=== PATIENT | female | born 1950 | race Caucasian/White ===

== ENCOUNTER 2023-03-24 12:25 | Observation (INO) | payer MEDICARE, SELFPAY ==
[2023-03-24] VITALS (33 sets, daily range): BP systolic 94–158; BP diastolic 56–99; PULSE 56–152; RESP 12–21; TEMP 36.2–36.8; O2SAT 96–100; BMI 45.1
--- NOTE | ~2023-03-24 | XR_ITS ---
EXAMINATION: XR chest 2V DATE: 03/24/2023 13:27 INDICATION: Heart palpitations TECHNIQUE: PA and lateral views of the chest are obtained. COMPARISON: 12/24/2021 FINDINGS: The lungs are free of acute opacities. No pleural effusion or pneumothorax. The cardiomedia stinal silhouette is normal. There is mild thoracic spondylosis. IMPRESSION: 1. No acute cardiopulmonary abnormality. Reviewed, dictated and finalized at location B. SM TEACHER
--- NOTE | 2023-03-24 12:30 | ECG_ITS ---
Measurements Intervals [place] Rate: 151 P: HI: 0 QRS: 19 QRSD: 129 T: 59 QT: 319 QTc: 506 Interpretive Statements ATRIAL FLUTTER/TACHYCARDIA WITH RAPID VENTRICULAR RESPONSE PROBABLE SEPTAL MYOCARDIAL INFARCTION , PROBABLY OLD [35 ms Q WAVE IN V1/V2] ABNORMAL ECG NO PREVIOUS ECG AVAILABLE FOR COMPARISON Electronically Signed On 03-24-2023 17:21:18 POWERHOUSE LABORER by Ronny Rose M.D.
[2023-03-24] MEDS: dilTIAZem HCl INJ 25 MG/5 ML VIAL 10 MG IV PUSH (13:02)
[2023-03-24 13:11] LABS: Basophils Absolute Auto 0.1 K/mm3 (0.0-0.1); Basophils Percent Auto 0.8 % (0.2-1.2); Eosinophils Absolute Auto 0.3 K/mm3 (0-0.3); Eosinophils Percent Auto 3.8 % (0-4.4); Hematocrit 37.6 % (37.0-47.0); Hemoglobin 12.1 g/dL (12.0-15.0); Immature Granulocyte Absolute 0.01 K/mm3 (0.00-0.031); Immature Granulocyte Percent A 0.1 % (0-0.5); Lymphocytes Absolute Auto 2.89 K/mm3 (0.9-3.2); Lymphocytes Percent Auto 36.9 % (18.3-44.2); Mean Corpuscular HGB Conc 32.2 g/dl (32-36); Mean Corpuscular Hemoglobin 30.7 pg (26-34); Mean Corpuscular Volume 95.4 fl (80-100); Mean Platelet Volume 11.1 fl (7.4-10.4); Monocytes Absolute Auto 0.7 K/mm3 (0.1-0.6); Monocytes Percent Auto 9.3 % (2.6-8.5); Neutrophils Absolute Auto 3.9 K/mm3 (1.3-6.7); Neutrophils Percent Auto 49.1 % (45.5-73.1); Platelet Count Result 251 k/mm3 (150-375); Red Blood Count 3.94 M/mm3 (4.2-5.4); Red Cell Distribution Width 13.2 % (11.5-14.5); White Blood Count 7.8 K/mm3 (4.5-10.0)
[2023-03-24 13:24] LABS: Prothrombin Time 13.8 Seconds (11.1-14.7)
[2023-03-24 13:25] LABS: Partial Thromboplastin Time 28.7 SECONDS (22.3-36.8)
[2023-03-24 13:33] LABS: Alanine Aminotransferase 19 U/L (6-35); Albumin Level 3.9 g/dL (3.5-5.1); Alkaline Phosphatase 82 U/L (38-126); Anion Gap 9 mmol/L (8-16); Aspartate Amino Transferase 30 U/L (14-36); Bilirubin,Total 0.8 mg/dL (0.2-1.3); Blood Urea Nitrogen 24 mg/dL (7-17); Calcium 9.4 mg/dL (8.4-10.2); Carbon Dioxide 22 mmol/L (22-30); Chloride 105 mmol/L (98-107); Estimated CRCL calculation 45 ml/min; Estimated Glomerular Filt Rate 40; Glucose 269 mg/dL (65-110); Magnesium 1.8 mg/dL (1.6-2.3); Potassium 5.1 mmol/L (3.4-5.0); Sodium 136 mmol/L (137-145)
[2023-03-24 13:40] LABS: NT Pro B Type Natriuretic Pept 2770 pg/mL (19.9-100)
[2023-03-24] MEDS: dilTIAZem HCl INJ 25 MG/5 ML VIAL 15 MG IV PUSH (13:55)
--- NOTE | 2023-03-24 14:18 | ECG_ITS ---
Measurements Intervals [place] Rate: 85 P: UT: 0 QRS: 10 QRSD: 89 T: 15 QT: 352 QTc: 419 Interpretive Statements ATRIAL FIBRILLATION BASELINE ARTIFACT NONSPECIFIC T-WAVE ABNORMALITY ABNORMAL RHYTHM ECG COMPARED TO ECG 03/24/2023 12:36:21 ATRIAL FIBRILLATION HAS REPLACED ATRIAL FLUTTER T-WAVE ABNORMALITY NOW PRESENT Electronically Signed On 03-24-2023 17:24:43 CLINICAL TRIAL HEAD by Ronny Rose M.D.
--- NOTE | 2023-03-24 14:36 | ED.ARRPALP ---
HPI - Arrhythmia/Palpitations General Chief Complaint: Arrhythmia/Palpitations Stated Complaint: INC HR Time Seen by Provider: 03/24/23 12:42 History of Present Illness HPI narrative: patient is a 72-year-old female who presents ER with elbow heart rate. She had a clinic appointment that showed a heart rate in the 150s. Has a similar heart rate on arrival here. No chest pain or shortness of breath. She cannot feel the palpitations. No lightheadedness or dizziness. Denies fevers or chills or sweats. No history of arrhythmia. Related Data Home Medications Medication Instructions Recorded Confirmed atorvastatin 40 mg tablet 40 mg PO DAILY 03/24/23 03/24/23 glipizide 10 mg tablet 20 mg PO HS 03/24/23 03/24/23 hydrochlorothiazide 25 mg tablet 25 mg PO DAILY PRN Edema 03/24/23 03/24/23 lisinopril 10 mg tablet 10 mg PO DAILY 03/24/23 03/24/23 loratadine 10 mg tablet 10 mg PO DAILY PRN Allergy Symptoms 03/24/23 03/24/23 metformin 850 mg tablet 1,700 mg PO HS 03/24/23 03/24/23 Allergies Allergy/AdvReac Type Severity Reaction Status Date / Time No Known Allergies Allergy Verified 03/24/23 13:01 Review of Systems Review of Systems: All systems reviewed & are unremarkable except as noted in HPI and below Constitutional: Constitutional: Denies chills, Denies fatigue and Denies fever(s) ENT: Reports system reviewed and no additional complaints, except as documented Cardiovascular: Cardiovascular: Denies chest pain, Reports rapid heart rate and Denies radiating jaw, neck or arm pain Respiratory: Respiratory: Reports no additional respiratory complaints Gastrointestinal: Gastrointestinal: Reports no additional gastrointestinal complaints Genitourinary: Genitourinary: Reports no additional female genitourinary complaints Musculoskeletal: Musculoskeletal: Reports no additional musculoskeletal complaints [facility] Past Medical History Medical History (Updated 03/24/23 @ 19:47 by Diony Rene MD) DM2 (diabetes mellitus, type 2) HTN (hypertension) Social History Social History Smoking status: Never smoker Alcohol intake: current Drinks per week: 1 Substance use: current Substance use type: marijuana Last use: 03/23/23 Do You Feel Safe in your Home?: Yes Lack of Transportation: No Lack of Food: Never True Current Housing: I Have Housing Concerned About Future Housing: No Difficulty Paying Gas/Electric Bills: No Difficulty Paying for Meds: No Currently Unemployed: No Education: Bachelor's Degree Difficulty w/ Childcare or Family Care: No Spiritual care concerns: No Exam Narrative: GENERAL: Well-appearing, well-nourished, and in no acute distress. HEAD: Normocephalic, atraumatic. ENT: Mucous membranes moist. NECK: Supple. CHEST: Clear to auscultation. No respiratory distress. HEART: Tachycardic regular. Normal peripheral pulses. ABDOMEN: Soft, nontender, nondistended. EXTREMITIES: Normal range of motion. No edema. SKIN: Warm, dry, no rash. NEURO: Alert and oriented x3. PSYCH: Normal mood and affect. Course Course Emergency Course: patient received 25 mg of diltiazem IV with a flutter with RVR to atrial fibrillation. 1444: discussed with cardiology and hospitalist. Admit, lovenox. PO metoprolol. Vital Signs Vital signs: Vital Signs Temperature 97.5 F L 03/24/23 12:31 Pulse Rate 147 H 03/24/23 12:31 Respiratory Rate 20 03/24/23 12:31 Blood Pressure 139/96 H 03/24/23 12:31 Pulse Oximetry 100 03/24/23 12:31 Temperature 97.9 F 03/24/23 19:21 Pulse Rate 56 L 03/24/23 19:21 Respiratory Rate 18 03/24/23 19:21 Blood Pressure 109/56 L 03/24/23 19:21 Pulse Oximetry 97 03/24/23 19:21 Oxygen Delivery Room Air 03/24/23 16:21 MDM - Arrhythmia/Palpitations Lab Data 03/24/23 13:04 03/24/23 13:04 Labs: Lab Results 03/24/23 Range/Units 13:04 WBC 7.8 (4.5-10.0) K/mm3 RBC 3.94
[2023-03-24] MEDS: METOPROLOL TARTRATE 25 MG TABLET PO ×2 (15:43→20:42)
--- NOTE | 2023-03-24 15:53 | PM.IMHP ---
H&P: HPI History of Present Illness Date/Time: 03/24/23 15:53 Chief Complaint: Tachycardia Narrative: 72 y/o F presents here with new tachycardia with PMH of HTN and DM. Patient presented here with new tachycardia that was discovered at her Nephrology appt with Quoc HARTMAN today. Patient is unsure why she sees a circuits engineer for monitoring , Retort Load Expediter elevated and GFR 40 - likely CKD. At this appt they noted her HR ranged from 130-150's. Initial EKG showed atrial flutter RVR, repeat post dilt IVP showed rate controlled AFib without RVR. Patient does not endorse any chest pain, SOB, new fatigue, palpitations, or weakness. Some limitations in mobility r/t chronic low back pain due to arthritis. Denies any previous cardiac history and does not follow with a studio operations manager. No recent illnesses. Midl ankle edema - present over a year, no pitting, and not on amlodipine. No other complaints or concerns. Review of Systems Review of Systems: All systems reviewed & are unremarkable except as noted in HPI and below PMFSH Past Medical History Medical History (Updated 03/24/23 @ 16:52 by Chasity Kuo, ROLLER MACHINE OPERATOR) DM2 (diabetes mellitus, type 2) HTN (hypertension) Social History Social History Smoking status: Never smoker Alcohol intake: current Drinks per week: 1 Substance use: current Substance use type: marijuana Last use: 03/23/23 Do You Feel Safe in your Home?: Yes Lack of Transportation: No Lack of Food: Never True Current Housing: I Have Housing Concerned About Future Housing: No Difficulty Paying Gas/Electric Bills: No Difficulty Paying for Meds: No Currently Unemployed: No Education: Bachelor's Degree Difficulty w/ Childcare or Family Care: No Spiritual care concerns: No Meds Home Medications and Allergies Home Medications Medication Instructions Recorded Confirmed Type atorvastatin 40 mg tablet 40 mg PO DAILY 03/24/23 03/24/23 History glipizide 10 mg tablet 20 mg PO HS 03/24/23 03/24/23 History hydrochlorothiazide 25 mg tablet 25 mg PO DAILY PRN Edema 03/24/23 03/24/23 History lisinopril 10 mg tablet 10 mg PO DAILY 03/24/23 03/24/23 History loratadine 10 mg tablet 10 mg PO DAILY PRN Allergy Symptoms 03/24/23 03/24/23 History metformin 850 mg tablet 1,700 mg PO HS 03/24/23 03/24/23 History Allergies Allergy/AdvReac Type Severity Reaction Status Date / Time No Known Allergies Allergy Verified 03/24/23 13:01 Vital Signs Vital Signs - 24 hr 03/24/23 12:31 03/24/23 12:45 03/24/23 12:46 Temperature 97.5 F L Pulse Rate 147 H 148 H 149 H Respiratory Rate 20 14 17 Blood Pressure 139/96 H 139/96 H Pulse Oximetry 100 99 99 03/24/23 13:00 03/24/23 13:01 03/24/23 13:15 Temperature Pulse Rate 150 H 149 H 149 H Respiratory Rate 16 17 12 Blood Pressure 128/83 Pulse Oximetry 100 03/24/23 13:16 03/24/23 13:30 03/24/23 13:33 Temperature Pulse Rate 149 H 152 H 151 H Respiratory Rate 20 15 17 Blood Pressure 131/81 145/86 H Pulse Oximetry 100 100 03/24/23 13:45 03/24/23 13:47 03/24/23 13:48 Temperature Pulse Rate 152 H 148 H 149 H Respiratory Rate 17 19 13 Blood Pressure 145/99 H Pulse Oximetry 100 03/24/23 14:00 03/24/23 14:02 03/24/23 14:15 Temperature Pulse Rate 85 95 99 Respiratory Rate 14 17 14 Blood Pressure 122/65 Pulse Oximetry 96 99 03/24/23 15:43 03/24/23 14:17 03/24/23 14:30 Temperature Pulse Rate 136 H 122 H 119 H Respiratory Rate 19 15 Blood Pressure 102/67 Pulse Oximetry 98 98 03/24/23 14:31 03/24/23 14:47 03/24/23 15:00 Temperature Pulse Rate 101 H 130 H 140 H Respiratory Rate 14 18 15 Blood Pressure 140/66 120/64 Pulse Oximetry 98 99 03/24/23 15:32 03/24/23 15:46 Temperature Pulse Rate 130 H 136 H Respiratory Rate 21 H 19 Blood Pressure 133/74 158/91 H Pulse Oximetry Exam Const: General: comfortable and no acute distress HENMT: Face/Nose/Sinus: Normal nares pre
[2023-03-24] MEDS: METOPROLOL TARTRATE INJ 5 MG/5 ML VIAL IV PUSH (16:22)
--- NOTE | 2023-03-24 16:40 | ADMGEN ---
This patient, Shahnaz Rene, was admitted to IMU Room 209-01. Patient/family oriented to hospital policies and general routines including ID bracelet, bed and alarms, visiting hours, pain management, procedures, bathroom and other care routines, personal items, smoking policy, room service/diet, and visiting hours. Information on how to activate the Rapid Response Team has been discussed. Patient/Family are encouraged to report perceived risks to care and to ask questions if they do not understand what they are told or what they should do.
[2023-03-24 22:52] LABS: Glucose Point of Care 301 mg/dl (65-105)
[2023-03-24] MEDS: INSULIN ASPART (*BKC) 100 UNITS/ML SUB-Q (23:02)
[2023-03-25] VITALS (12 sets, daily range): BP systolic 122–137; BP diastolic 60–70; PULSE 60–80; RESP 16; TEMP 36.4–37.1; O2SAT 99–100
--- NOTE | 2023-03-25 | ECHO_ITS ---
Patient Info Name: Shahnaz Rene Age: 72 years : 1950 Gender: Female Ht: 65 in Wt: 276 lbs BSA: 2.47 m2 HR: 60 bpm BP: 135 / 69 mmHg Heart Rhythm: Sinus Rhythm Technical Quality: Fair Exam Date: 03/25/2023 1:28 PM Exam Location: Echo Lab Patient Status: Outpatient Admit Date: 03/24/2023 Staff Ordering Physician: Chasity Kuo APRN Environmental Services Project Manager: Jessy Humphrey RDCS Attending Provider: Kelly Wharton DO Referring Physician: Ayaan SERRATO; Exam Type: CA echo dop color flow w con Study Info Indications - new afib Complete two-dimensional, color flow and Doppler transthoracic echocardiogram is performed with contrast to opacify the left ventricle and to improve the deliniation of the left ventricle endocardial borders. Contrast/Agitated Saline Contrast/Ag. Saline: Definity Amount: 2.00 ml Administered By: Jessy Humphrey RDCS Existing IV Access: Yes IV Access Condition: patent with no signs of infiltration Summary 1. Left ventricular chamber dimension is normal. 2. Left ventricular systolic function is normal, estimated at 60-65%. 3. The left ventricular diastolic function is grade III diastolic dysfunction. 4. Right ventricular systolic function is normal. 5. Right atrial chamber dimension is mildly enlarged. 6. There is mild tricuspid valve regurgitation. 7. There is trivial pericardial effusion. Left Ventricle Left ventricular chamber dimension is normal. Left ventricular systolic function is normal, estimated at 60-65%. The left ventricular diastolic function is grade III diastolic dysfunction. Right Ventricle Right ventricular chamber dimension is normal. Right ventricular systolic function is normal. Left Atria Left atrial chamber dimension is normal. Right Atria Right atrial chamber dimension is mildly enlarged. Atrial Septum Intact interatrial septum visualized by color flow imaging. Aortic Valve The aortic valve is trileaflet. There is no aortic valve stenosis. There is no aortic valve regurgitation. There is mild aortic valve calcification. Pulmonic Valve The pulmonic valve is not well visualized. Mitral Valve There is trace mitral valve regurgitation. Tricuspid Valve There is mild tricuspid valve regurgitation. Pericardium/Pleural There is trivial pericardial effusion. Inferior Vena Cava Normal inferior vena cava with >50% collapse upon inspiration consistent with normal right atrial pressure, 3 mmHg. Aorta The aortic root size at the sinus of Valsalva is normal. Left Ventricular Outflow Tract Name Value Normal LVOT 2D LVOT Diameter 1.96 cm LVOT Doppler LVOT Peak Gradient 3 mmHg LVOT Mean Gradient 1 mmHg LVOT VTI 19.85 cm LVOT VTI/AV VTI Ratio 0.49 LVOT Stroke Volume 59.99 ml LVOT CO 3.56 l/min LVOT CI 1.44 L/min/m2 Pulmonic Valve Name Value Normal
[2023-03-25 04:58] LABS: Basophils Absolute Auto 0.1 K/mm3 (0.0-0.1); Basophils Percent Auto 0.6 % (0.2-1.2); Eosinophils Absolute Auto 0.4 K/mm3 (0-0.3); Hematocrit 33.6 % (37.0-47.0); Hemoglobin 10.6 g/dL (12.0-15.0); Immature Granulocyte Absolute 0.02 K/mm3 (0.00-0.031); Immature Granulocyte Percent A 0.3 % (0-0.5); Lymphocytes Percent Auto 40.9 % (18.3-44.2); Mean Corpuscular HGB Conc 31.5 g/dl (32-36); Mean Corpuscular Hemoglobin 30.2 pg (26-34); Mean Corpuscular Volume 95.7 fl (80-100); Mean Platelet Volume 10.3 fl (7.4-10.4); Monocytes Absolute Auto 0.7 K/mm3 (0.1-0.6); Monocytes Percent Auto 8.7 % (2.6-8.5); Neutrophils Absolute Auto 3.5 K/mm3 (1.3-6.7); Neutrophils Percent Auto 44.5 % (45.5-73.1); Platelet Count Result 230 k/mm3 (150-375); Red Blood Count 3.51 M/mm3 (4.2-5.4); Red Cell Distribution Width 13.3 % (11.5-14.5); White Blood Count 7.8 K/mm3 (4.5-10.0)
[2023-03-25 05:08] LABS: Alanine Aminotransferase 19 U/L (6-35); Albumin Level 3.8 g/dL (3.5-5.1); Alkaline Phosphatase 76 U/L (38-126); Anion Gap 7 mmol/L (8-16); Aspartate Amino Transferase 31 U/L (14-36); Bilirubin,Total 0.8 mg/dL (0.2-1.3); Blood Urea Nitrogen 26 mg/dL (7-17); Calcium 8.9 mg/dL (8.4-10.2); Carbon Dioxide 25 mmol/L (22-30); Chloride 105 mmol/L (98-107); Estimated CRCL calculation 43 ml/min; Estimated Glomerular Filt Rate 37; Glucose 190 mg/dL (65-110); Hemoglobin A1C 7.9 % (<5.7); Potassium 4.6 mmol/L (3.4-5.0); Sodium 137 mmol/L (137-145)
[2023-03-25 07:04] LABS: Free T4 Free Thyroxine Reflex 1.22 ng/dL (0.78-2.19)
[2023-03-25 08:20] LABS: Glucose Point of Care 195 mg/dl (65-105)
--- NOTE | 2023-03-25 08:39 | PM.IMPN ---
Progress Note: A&P Assessment and Plan (1) DM2 (diabetes mellitus, type 2): Code(s): E11.9 - Type 2 diabetes mellitus without complications Status: Acute (2) Atrial fibrillation and flutter: Code(s): I48.91 - Unspecified atrial fibrillation; I48.92 - Unspecified atrial flutter Status: Acute (3) JULISSA (obstructive sleep apnea): Code(s): G47.33 - Obstructive sleep apnea (adult) (pediatric) Status: Acute Plan 72 y/o F presents here with new tachycardia with PMH of HTN and DM. Patient presented here with new tachycardia that was discovered at her Nephrology appt with Quoc HARTMAN today. Patient is unsure why she sees a host/hostess restaurant for monitoring , Ocular Care Aide elevated and GFR 40 - likely CKD. At this appt they noted her HR ranged from 130-150's. Initial EKG showed atrial flutter RVR, repeat post dilt IVP showed rate controlled AFib without RVR. (1) Atrial fibrillation and flutter: ?Code(s): I48.91 - Unspecified atrial fibrillation; I48.92 - Unspecified atrial flutter ?Status:?Acute ?Assessment and Plan: Initially A-Flutter RVR with rate at 151. given 25 of dilt IVP with conversion to A-Fib, rate controlled, without RVR. ordered 5 mg of metoprolol IVP. BNP elevated - 2770. Follow-up tSH: 5.2, free T4 1.22, free T4 1.41, follow-up with primary care doctor for evaluation echo pending cardiology consulted management per precast concrete ironworker Kelsey ordered, patient refused despite education. CHADSVasc - 4. patient requesting oral anticoagulation, monitor labs and tele. Now sinus rhythm, continue metoprolol 25 mg b.i.d. p.o., Eliquis 5 mg b.i.d. p.o. per precast concrete ironworker. Appreciate precast concrete ironworker recommendation (2) DM2 (diabetes mellitus, type 2): ?Code(s): E11.9 - Type 2 diabetes mellitus without complications ?Status:?Acute ?Assessment and Plan: Hypoglycemia protocol POC blood glucose ACHS home medication held - metformin and glipizide correct regimen ordered - low dose TIDWM and HS A1C ordered CKD stage 3 BUN creatinine close to baseline Avoid nephrotoxic medication Follow-up BMP OAS possibl JULISSA, Patient has a snore in the night, patient is morbidly obese Patient needs a sleeping study of patient, discussed with patient about the necessity of sleeping study, referral per primary care doctor Subjective Date/time seen: 03/25/23 08:39 Interval history: Patient feels better, denies chest pain, breaths, palpitation. Labs reviewed, patient is hemodynamically stable rate is controlled Exam Narrative: GENERAL: Pleasant, in no acute distress. Well-nourished. - EYES: EOMI. Anicteric. - HENT: Moist mucous membranes. - LUNGS: Clear to auscultation bilaterally, no wheezing, rhonchi, or rales. - CARDIOVASCULAR: Regular rhythm, tachycardic no murmur. No JVD. - ABDOMEN: Soft, non-tender and non-distended. No palpable masses. - EXTREMITIES: No edema. Peripheral pulses 2+. Non-tender. - NEUROLOGIC: No focal neurological deficits. CN II-XII grossly intact. - PSYCHIATRIC: Awake, Alert and oriented x 3. Appropriate mood and affect. - SKIN: No rashes or lesions. Warm. - LYMPH: No cervical lymphadenopathy. Objective Data Vital Signs Vital Signs: Vital Signs - 24 hr 03/24/23 12:31 03/24/23 12:45 03/24/23 12:46 Temperature 97.5 F L Pulse Rate 147 H 148 H 149 H Respiratory Rate 20 14 17 Blood Pressure 139/96 H 139/96 H Pulse Oximetry 100 99 99 Oxygen Delivery 03/24/23 13:00 03/24/23 13:01 03/24/23 13:15 Temperature Pulse Rate 150 H 149 H 149 H Respiratory Rate 16 17 12 Blood Pressure 128/83 Pulse Oximetry 100 Oxygen Delivery 03/24/23 13:16 03/24/23 13:30 03/24/23 13:33 Temperature Pulse Rate 149 H 152 H 151 H Respiratory Rate 20 15 17 Blood Pressure 131/81 145/86 H Pulse Oximetry 100 100 Oxygen Delivery 03/24/23 13:45 03/24/23 13:47 03/24/23 13:48 Temperature Pulse Rate 152 H 148 H 149 H Respiratory Rate 17 19 13 Blood
[2023-03-25] MEDS: lisinopriL 10 MG TABLET PO (09:07)
[2023-03-25] MEDS: METOPROLOL TARTRATE 25 MG TABLET PO (09:07)
[2023-03-25] MEDS: ATORVASTATIN 40 MG TABLET PO (09:07)
--- NOTE | 2023-03-25 10:40 | PM.CNCAR ---
Assessment and Plan Assessment and plan (1) Atrial fibrillation and flutter: Code(s): I48.91 - Unspecified atrial fibrillation; I48.92 - Unspecified atrial flutter Status: Acute Assessment and Plan: New diagnosis for the patient. Discussed diagnosis of atrial fibrillation/flutter with the patient, including management/treatment strategies, risk of stroke, etc. TSH level mildly elevated but T4 level normal. Converted to sinus rhythm 03/24 at 17:55 and has maintained sinus rhythm since then. Continue Metoprolol 25mg BID. [id number] of 4 for age, gender, hypertension, diabetes. Discussed anticoagulation given risk of stroke. Patient agreeable. Will start Eliquis 5mg PO BID. Recommend outpatient sleep study to evalute for JULISSA. Echocardiogram pending. If echocardiogram without significant abnormality, then patient can be discharged home today. Will arrange for follow up in our office. (2) HTN (hypertension): Code(s): I10 - Essential (primary) hypertension Status: Acute Assessment and Plan: Stable, continue home antihypertensives (3) Hyperlipidemia: Code(s): E78.5 - Hyperlipidemia, unspecified Status: Acute Assessment and Plan: Continue statin (4) DM2 (diabetes mellitus, type 2): Code(s): E11.9 - Type 2 diabetes mellitus without complications Status: Acute Assessment and Plan: As per primary team. Plan Recommendations and plan discussed with Hospitalist. History of Present Illness History of Present Illness Consult date/time: 03/25/23 10:40 Requesting physician: Doiny Rene MD Consult reason: atrial fibrillation Reason For Visit: Afib/CHF/Aflutter with RVR Narrative: We are consulted for atrial flutter/fibrillation with RVR. This is a 72 year old female with hypertension, hyperlipidemia, type 2 diabetes mellitus, chronic kidney disease who was at her appointment with Dr. Kumari when they noticed her heart rate to be in the 130s to 150s. Given the tachycardia, she was sent to the ER. Initial EKG in the ED showed atrial flutter with RVR. Given IV Diltiazem. Repeat EKG showed rate controlled atrial fibrillation. She converted to sinus rhythm at 17:55 03/24 and has remained in sinus rhythm since then. Started on PO Metoprolol. This is a new diagnosis of atrial fibrillation/flutter for the patient. No prior cardiac issues. She did not feel any palpitations or notice that her heart rate was high yesterday. Feeling well this morning. Review of Systems Review of Systems: All systems reviewed & are unremarkable except as noted in HPI and below (HPI) [facility] Past Medical History Medical History (Updated 03/25/23 @ 10:45 by Maggie Lazo MD) DM2 (diabetes mellitus, type 2) HTN (hypertension) Social History Social History Smoking status: Never smoker Alcohol intake: current Drinks per week: 1 Substance use: current Substance use type: marijuana Last use: 03/23/23 Do You Feel Safe in your Home?: Yes Lack of Transportation: No Lack of Food: Never True Current Housing: I Have Housing Concerned About Future Housing: No Difficulty Paying Gas/Electric Bills: No Difficulty Paying for Meds: No Currently Unemployed: No Education: Bachelor's Degree Difficulty w/ Childcare or Family Care: No Spiritual care concerns: No Meds Home Medications and Allergies Home Medications Medication Instructions Recorded Confirmed Type atorvastatin 40 mg tablet 40 mg PO DAILY 03/24/23 03/24/23 History glipizide 10 mg tablet 20 mg PO HS 03/24/23 03/24/23 History hydrochlorothiazide 25 mg tablet 25 mg PO DAILY PRN Edema 03/24/23 03/24/23 History lisinopril 10 mg tablet 10 mg PO DAILY 03/24/23 03/24/23 History loratadine 10 mg tablet 10 mg PO DAILY PRN Allergy Symptoms 03/24/23 03/24/23 History metformin 850 mg tablet 1,700 mg PO HS 03/24/23 03/24/23 History Allergies Guido
[2023-03-25 10:54] LABS: Total Triiodothyronine (T3) 1.41 NG/ML (0.97-1.69)
[2023-03-25] MEDS: APIXABAN 5 MG TABLET PO (12:14)
--- NOTE | 2023-03-25 13:43 | PM.DS ---
DS: Admitting Diagnosis Discharge Date 03/25/23 Admitting Diagnosis (1) DM2 (diabetes mellitus, type 2): ?Code(s): E11.9 - Type 2 diabetes mellitus without complications ?Status:?Acute (2) Atrial fibrillation and flutter: ?Code(s): I48.91 - Unspecified atrial fibrillation; I48.92 - Unspecified atrial flutter ?Status:?Acute (3) JULISSA (obstructive sleep apnea): ?Code(s): G47.33 - Obstructive sleep apnea (adult) (pediatric) ?Status:?Acute DS: Discharge Diagnosis Discharge Diagnosis (1) DM2 (diabetes mellitus, type 2): Code(s): E11.9 - Type 2 diabetes mellitus without complications Status: Acute (2) Atrial fibrillation and flutter: Code(s): I48.91 - Unspecified atrial fibrillation; I48.92 - Unspecified atrial flutter Status: Acute (3) JULISSA (obstructive sleep apnea): Code(s): G47.33 - Obstructive sleep apnea (adult) (pediatric) Status: Acute DS: Summary Hospital Course Hospital Course: 72 y/o F presents here with new tachycardia with PMH of HTN and DM. Patient presented here with new tachycardia that was discovered at her Nephrology appt with Quoc HARTMAN today. Patient is unsure why she sees a machinery rigger for monitoring , Pasteurizer Helper elevated and GFR 40 - likely CKD. At this appt they noted her HR ranged from 130-150's. Initial EKG showed atrial flutter RVR, repeat post dilt IVP showed rate controlled AFib without RVR. (1) Atrial fibrillation and flutter: ?Code(s): I48.91 - Unspecified atrial fibrillation; I48.92 - Unspecified atrial flutter ?Status:?Acute ?Assessment and Plan: Initially A-Flutter RVR with rate at 151. given 25 of dilt IVP with conversion to A-Fib, rate controlled, without RVR. ordered 5 mg of metoprolol IVP. BNP elevated - 2770. Follow-up tSH: 5.2, free T4 1.22, free T4 1.41, follow-up with primary care doctor for evaluation echo done, unremarkable cardiology consulted management per patient safety sitter Lovenox ordered, patient refused despite education. CHADSVasc - 4. patient requesting oral anticoagulation, monitor labs and tele. Now sinus rhythm, continue metoprolol 25 mg b.i.d. p.o., Eliquis 5 mg b.i.d. p.o. per patient safety sitter. Appreciate patient safety sitter recommendation Cardiology's approved discharge, patient will see patient safety sitter in the office (2) DM2 (diabetes mellitus, type 2): ?Code(s): E11.9 - Type 2 diabetes mellitus without complications ?Status:?Acute ?Assessment and Plan: Hypoglycemia protocol POC blood glucose ACHS home medication held - metformin and glipizide correct regimen ordered - low dose TIDWM and HS Resume home medication at discharge CKD stage 3 BUN creatinine close to baseline Avoid nephrotoxic medication Follow-up BMP, no change from yesterday Follow-up with primary care doctor in the office OAS possibl JULISSA, Patient has a snore in the night, patient is morbidly obese Patient needs a sleeping study of patient, discussed with patient about the necessity of sleeping study, referral per primary care doctor Time Spent with Patient Time attestation: Total time spent providing and/or coordinating discharge services: Exam Narrative: GENERAL: Pleasant, in no acute distress. Well-nourished. - EYES: EOMI. Anicteric. - HENT: Moist mucous membranes. - LUNGS: Clear to auscultation bilaterally, no wheezing, rhonchi, or rales. - CARDIOVASCULAR: Regular rhythm, tachycardic no murmur. No JVD. - ABDOMEN: Soft, non-tender and non-distended. No palpable masses. - EXTREMITIES: No edema. Peripheral pulses 2+. Non-tender. - NEUROLOGIC: No focal neurological deficits. CN II-XII grossly intact. - PSYCHIATRIC: Awake, Alert and oriented x 3. Appropriate mood and affect. - SKIN: No rashes or lesions. Warm. - LYMPH: No cervical lymphadenopathy. DS: Data Data Completed and Pending Labs on day of discharge: Labs from last 24 hours 03/25/23 03/25/23 03/24/23 08:16 04:53 22:48 WBC 7.8 RBC 3.51
[2023-03-25] MEDS: PERFLUTREN LIPID MICROSPHERES 1.5 ML VIAL DILUTED TO 10 ML TOTAL VOLUME IV PUSH (14:01)
--- NOTE | 2023-03-25 15:42 | IVDEFINITY ---
Prior to administration of IV Definity the patient was educated on the risks and benefits of the imaging enhancing agent including potential adverse side effects. The patient verbalized understanding. Allergies were verified. No exclusion criteria were identified and at least one of the following inclusion criteria were met: 1) physician request, 2) patient technically difficult to image (per the [place] [employer] guidelines of two or more segments not discernable within the apical view), or 3) questionable left ventricular function. ?
== END 2023-03-25 16:56 | disposition home or self-care (01) ==
LOC: ANHED 14:49 → ANHIMU 15:58
PROVIDERS: Student in an Organized Health Care Education/Training Program; Admitting Provider Student in an Organized Health Care Education/Training Program; Emergency Provider Emergency Medicine; Visit Provider Hospitalist
DX: I48.91 Unspecified atrial fibrillation (principal); I48.92 Unspecified atrial flutter; R79.89 Other specified abnormal findings of blood chemistry; G47.33 Obstructive sleep apnea (adult) (pediatric); I13.0 Hypertensive heart and chronic kidney disease with heart failure and stage 1 through stage 4 chronic kidney disease, or unspecified chronic kidney disease; E11.22 Type 2 diabetes mellitus with diabetic chronic kidney disease; N18.9 Chronic kidney disease, unspecified; E78.5 Hyperlipidemia, unspecified; E11.9 Type 2 diabetes mellitus without complications; I07.1 Rheumatic tricuspid insufficiency; R94.31 Abnormal electrocardiogram [ECG] [EKG]; F10.90 Alcohol use, unspecified, uncomplicated; F12.90 Cannabis use, unspecified, uncomplicated; Z79.84 Long term (current) use of oral hypoglycemic drugs; Z79.899 Other long term (current) drug therapy
CPT/HCPCS: 36415; 71046; 80053; 82948; 83036; 83735; 83880; 84439; 84443; 84480; 85025; 85610; 85730; 93005; 96374; 96375; 96376; 99285; A9270; C8929; G0378; J1815; Q9957

== ENCOUNTER 2023-11-21 11:28 | Outpatient (CLI) | payer MEDICARE, SELFPAY ==
[2023-11-21 11:49] LABS: Basophils Absolute Auto 0.1 K/mm3 (0.0-0.1); Eosinophils Absolute Auto 0.3 K/mm3 (0-0.3); Eosinophils Percent Auto 4.1 % (0-4.4); Immature Granulocyte Absolute 0.02 K/mm3 (0.00-0.031); Immature Granulocyte Percent A 0.3 % (0-0.5); Lymphocytes Absolute Auto 2.06 K/mm3 (0.9-3.2); Lymphocytes Percent Auto 28.4 % (18.3-44.2); Mean Corpuscular HGB Conc 30.3 g/dl (32-36); Mean Corpuscular Hemoglobin 26.3 pg (26-34); Mean Corpuscular Volume 86.8 fl (80-100); Mean Platelet Volume 10.4 fl (7.4-10.4); Monocytes Absolute Auto 0.7 K/mm3 (0.1-0.6); Monocytes Percent Auto 9.2 % (2.6-8.5); Neutrophils Absolute Auto 4.1 K/mm3 (1.3-6.7); Platelet Count Result 238 k/mm3 (150-375); Red Cell Distribution Width 23.6 % (11.5-14.5); White Blood Count 7.3 K/mm3 (4.5-10.0)
[2023-11-21 13:27] LABS: Alanine Aminotransferase 19 U/L (6-35); Albumin Level 3.9 g/dL (3.5-5.1); Alkaline Phosphatase 88 U/L (38-126); Anion Gap 8 mmol/L (4-12); Aspartate Amino Transferase 39 U/L (14-36); Bilirubin,Total 0.4 mg/dL (0.2-1.3); Blood Urea Nitrogen 16 mg/dL (7-17); Calcium 9.1 mg/dL (8.4-10.2); Carbon Dioxide 26 mmol/L (22-30); Chloride 105 mmol/L (98-107); Estimated Glomerular Filt Rate 40; Glucose 138 mg/dL (65-110); Iron 78 ug/dL (37-170); Lactate Dehydrogenase 171 U/L (120-246); Potassium 5.2 mmol/L (3.4-5.0); Sodium 139 mmol/L (137-145)
[2023-11-21 13:36] LABS: Percent Iron Saturation 22 % (20-50)
[2023-11-25 15:59] LABS: Methylmalonic Acid 1506 nmol/L (69-390)
[2023-11-29 14:23] LABS: Soluble Transferrin Receptor 1.39 mg/L (0.76-1.76)
== END 2023-11-21 11:29 | disposition home or self-care (01) ==
LOC: ANHLAB 11:34
PROVIDERS: Nurse Practitioner Family; Visit Provider Internal Medicine Hematology & Oncology
DX: D50.9 Iron deficiency anemia, unspecified (principal); N18.30 Chronic kidney disease, stage 3 unspecified; D63.1 Anemia in chronic kidney disease
CPT/HCPCS: 36415; 80053; 82607; 82728; 82746; 83540; 83550; 83615; 83921; 84238; 85025